=== PATIENT | female | born 1995 | race African-American/Black ===

== ENCOUNTER 2019-12-29 22:53 | Emergency (ER) | payer MEDICAID, OTHER ==
[~2019-12-29] VITALS: Ht 154.9 cm; Wt 90.7 kg
[2019-12-29 23:03] VITALS: BP 142/97
[2019-12-29] MEDS ORDERED: methylPREDNISolone SOD SUCC 125 MG/2 ML VL IM ONE (23:15)
[2019-12-29] MEDS ORDERED: diphenhdrAMINE HCL 25 MG CAP PO ONE (23:30)
== END 2019-12-30 00:17 | disposition home or self-care (01) ==
LOC: ER 22:53
DX: L29.9 Pruritus, unspecified (principal); Z91.048 Other nonmedicinal substance allergy status
CPT/HCPCS: 96372; 99283; J2930